=== PATIENT | female | born 1985 | race Caucasian/White ===

== ENCOUNTER 2016-11-02 19:17 | Emergency (ER) | payer OTHER ==
--- NOTE | 2016-11-02 19:52 | PDOC ---
Rapid Medical Evaluation Chief Complaint: Cold Symptoms Time Seen by Provider: 11/02/16 19:51 Medical Evaluation: I have performed a brief in-person evaluation of this patient. The patient presents with a chief complaint of: 31 yo F history asthma, fibromyalgia presents with fever, body aches. Pertinent physical exam findings: Ill appearing but nontoxic. I have ordered the following: UA/UCG, flu swab The patient will proceed to the ED for further evaluation.
[2016-11-02 19:55] VITALS: BP 125/101; PULSE 117; TEMP 100.2; BMI 31.3
[2016-11-02 20:26] LABS: URINE APPEARANCE SLCLOUDY; URINE BILIRUBIN NEGATIVE (NEGATIVE); URINE BLOOD NEGATIVE (NEGATIVE); URINE COLOR LTYELLOW; URINE GLUCOSE (UA) NEGATIVE (NEGATIVE); URINE KETONE NEGATIVE (NEGATIVE); URINE NITRITE POSITIVE (NEGATIVE); URINE PROTEIN NEGATIVE (NEGATIVE); URINE UROBILINOGEN NEGATIVE E.U./dl (0.2-1.0)
[2016-11-02 20:43] LABS: URINE LEUK ESTERASE TRACE (NEGATIVE)
[2016-11-02 20:53] LABS: URINE BACTERIA FEW /hpf (NONE SEEN); URINE MUCUS RARE; URINE RBC 8 /hpf (0-3); URINE WBC 23 /hpf (3-5)
[2016-11-02] MEDS ORDERED: KETOROLAC TROMETHAMINE 60 MG/2 ML VIAL IM ONE (21:29)
--- NOTE | 2016-11-02 21:35 | PDOC ---
History of Present Illness - General Chief Complaint: Cold Symptoms Stated Complaint: PAIN Time Seen by Provider: 11/02/16 19:51 History Source: Patient Exam Limitations: No Limitations - History of Present Illness Initial Comments: 11/02/16 21:30 Patient is here with acute onset of worsened body aches ( patient suffers from severe fibromyalgia ) but states this pain is different with earache, sore throat, fevers and chills that started yesterday. States sister was sick with URI last week but this is much worse than her illness. Patient receives pain management for her fibromyalgia which is been moderately controlled. Patient states pain is probably much worse due to her fibromyalgia and worries that she may have influenza Timing/Duration: reports: changing over time, getting worse Severity: reports: mild, moderate Past History - Travel Traveled outside of the country in the last 30 days: No Close contact w/someone who was outside of country & ill: No - Past Medical History Allergies/Adverse Reactions: Allergies Allergy/AdvReac Type Severity Reaction Status Date / Time No Known Allergies Allergy Verified 11/02/16 19:52 Home Medications: Ambulatory Orders Budesonide/Formoterol Fumarate [Symbicort 160-4.5 Mcg Inhaler] 1 inh IH BID PRN 03/22/12 Oxycodone HCl/Acetaminophen [Percocet 10-325 mg Tablet] 1 - 2 tab PO Q6H PRN 06/09 Oseltamivir Phosphate [Tamiflu -] 75 mg PO BID #10 capsule 11/02/16 Anemia: No Asthma: Yes Cancer: No Cardiac Disorders: No CVA: No COPD: No CHF: No Dementia: No Diabetes: No GI Disorders: No Disorders: (ectopic ) HTN: No Hypercholesterolemia: No Liver Disease: No Seizures: No Thyroid Disease: No - Surgical History Abdominal Surgery: No Appendectomy: No Cardiac Surgery: No Cholecystectomy: No Lung Surgery: No Neurologic Surgery: No Orthopedic Surgery: No - Reproductive History (#): 2 Para: 0 - Immunization History Immunization Up to Date: Yes - Psycho/Social/Smoking Cessation Hx Anxiety: No Suicidal Ideation: No Smoking Status: Yes Smoking History: Current some day smoker Have you smoked in the past 12 months: Yes Number of Cigarettes Smoked Daily: 3 Information on smoking cessation initiated: Yes 'Breaking Loose' booklet given: 11/02/16 Hx Alcohol Use: Yes (RARE) Drug/Substance Use Hx: No Substance Use Type: Alcohol, Marijuana Hx Substance Use Treatment: No Review of Systems - Review of Systems Able to Perform ROS?: Yes Is the patient limited German proficient: Yes Constitutional: Yes: Symptoms Reported, See HPI, Chills, Fever, Loss of Appetite , Malaise HEENTM: Yes: Symptoms Reported, See HPI, Nose Congestion, Throat Pain, Difficulty Swallowing Respiratory: Yes: Symptoms reported, See HPI, Cough. No: Wheezing ABD/GI: Yes: See HPI. No: Symptoms Reported Musculoskeletal: Yes: Symptoms Reported, See HPI, Joint Pain, Muscle Pain Integumentary: No: Symptoms Reported Neurological: Yes: Symptoms reported, See HPI, Headache All Other Systems: Reviewed and Negative *Physical Exam - Vital Signs Last Vital Signs Temp Pulse Resp BP Pulse Ox 100.2 F H 117 H 18 125/101 99 11/02/16 19:53 11/02/16 19:53 11/02/16 19:53 11/02/16 19:53 11/02/16 19:53 - Physical Exam General Appearance: Yes: Nourished, Appropriately Dressed, Apparent Distress, Moderate Distress HEENT: positive: PARTHA, TMs Normal (congested but landmarks easily visualized), Pharyngeal Erythema, Nasal Congestion, Rhinorrhea Respiratory/Chest: positive: Lungs Clear (worse) Gastrointestinal/Abdominal: positive: Soft. negative: Normal Bowel Sounds Extremity: positive: Normal Capillary Refill, Normal Inspection, Normal Range of Motion Integumentary: positive: Dry, Warm, Pale Neurologic: positive: casing trimmer II-XII NML intact, Fully Oriented, Alert, Normal Mood/ Affect, Normal Response, Motor Strength / ED Treatment Course - ADDITIONAL ORDERS Additional order review: Laboratory Results 11/02/16 19:50 Urine Color Ltyellow Urine Appearance Slcloudy Urine pH 8.0 D Ur Specific [place] 1.017 Urine Protein Negative Urine Glucose (UA) Negative Urine Ketones Negative Urine Blood Negative Urine Nitrite Positive Urine Bilirubin Negative Urine Urobilinogen Negative Ur Leukocyte Esterase Trace H Urine RBC 8 Urine WBC 23 Ur Epithelial Cells Rare Urine Bacteria Few Urine Mucus Rare Urine HCG, Qual Negative Progress Note - Progress Note Progress Note: Upper respiratory illness, probable influenza. Will treat with Tamiflu *DC/Admit/Observation/Transfer Diagnosis at time of Disposition: Influenzal acute upper respiratory infection - Discharge Dispostion Disposition: HOME Condition at time of disposition: Stable Admit: No - Patient Instructions Printed Discharge Instructions: DI for Viral Upper Respiratory Infection -- Adult Additional Instructions: Rest, drink lots of fluids: Teas, water, soups, Pedialyte Saltwater gargles Steamy showers/seem to face break up mucus Old-fashioned treatments help! Avoid contact with others until fevers and cough resolved as this is very contagious Lots of handwashing and good hygiene Continue [id number] medications for symptomatic relief Tylenol or Motrin for fever and pain Take all of Tamiflu as directed: 1 tab every 12 hours for 5 days Followup with private physician in one to 2 days as needed or if worsening Return to emergency department for worsened symptoms, fevers, dehydration Influenza takes between 5 and 7 days for resolution To not participate in any activity, work, or school until fevers and cough are gone for at least one day
[2016-11-02] MEDS ORDERED: KETOROLAC TROMETHAMINE 30 MG/1 ML VIAL ONE (21:37)
== END 2016-11-02 21:47 | disposition home or self-care (01) ==
LOC: JERFT 19:17
PROC: 3E0233Z Introduction of Anti-inflammatory into Muscle, Percutaneous Approach (ICD-10-PCS; principal; 2016-11-02)
DX: M79.7 Fibromyalgia (principal); J45.909 Unspecified asthma, uncomplicated; F17.210 Nicotine dependence, cigarettes, uncomplicated
CPT/HCPCS: 81003; 81015; 84703; 87804; 99281-25

== ENCOUNTER 2017-01-22 15:05 | Emergency (ER) | payer OTHER ==
[2017-01-22 15:13] VITALS: BP 126/96; PULSE 86; TEMP 98.1; BMI 32.8
--- NOTE | 2017-01-22 15:45 | PDOC ---
History of Present Illness - General Chief Complaint: Pain Stated Complaint: PAIN Time Seen by Provider: 01/22/17 15:44 History Source: Patient - History of Present Illness Occurred: reports: other Severity: reports: severe Upper Extremity Pain Location: left: shoulder Past History - Past Medical History Allergies/Adverse Reactions: Allergies Allergy/AdvReac Type Severity Reaction Status Date / Time No Known Allergies Allergy Verified 01/22/17 15:10 Home Medications: Ambulatory Orders NK [No Known Home Medication] 01/22/17 Anemia: No Asthma: Yes Cancer: No Cardiac Disorders: No CVA: No COPD: No CHF: No Dementia: No Diabetes: No GI Disorders: No Disorders: (ectopic ) HTN: No Hypercholesterolemia: No Liver Disease: No Seizures: No Thyroid Disease: No Other medical history: fibromyalgia - Surgical History Abdominal Surgery: Yes (ectopic x2) Appendectomy: No Cardiac Surgery: No Cholecystectomy: No Lung Surgery: No Neurologic Surgery: No Orthopedic Surgery: No - Reproductive History (#): 2 Para: 0 - Immunization History Immunization Up to Date: Yes - Psycho/Social/Smoking Cessation Hx Anxiety: No Suicidal Ideation: No Smoking Status: Yes Smoking History: Current every day smoker Have you smoked in the past 12 months: Yes Number of Cigarettes Smoked Daily: 2 Information on smoking cessation initiated: Yes 'Breaking Loose' booklet given: 01/22/17 Hx Alcohol Use: Yes Drug/Substance Use Hx: Yes Substance Use Type: None Hx Substance Use Treatment: No Review of Systems - Review of Systems Constitutional: No: Chills, Fever Musculoskeletal: Yes: Joint Pain. No: Joint Swelling Neurological: No: Numbness, Tingling, Weakness *Physical Exam - Vital Signs Last Vital Signs Temp Pulse Resp BP Pulse Ox 98.1 F 86 18 126/96 100 01/22/17 15:11 01/22/17 15:11 01/22/17 15:11 01/22/17 15:11 01/22/17 15:11 - Physical Exam General Appearance: Yes: Appropriately Dressed, Mild Distress HEENT: positive: Normal Voice Neck: positive: Supple Respiratory/Chest: negative: Respiratory Distress Extremity: positive: Normal Inspection, Tender (to superior aspect of L shoulder blade, FROMI to shoulder joint w/ intact strength, no ttp to cspine) Integumentary: positive: Dry, Warm Neurologic: positive: Fully Oriented, Alert, Normal Mood/Affect Medical Decision Making - Medical Decision Making 01/22/17 15:45 31 yo F, h/o cervical disc disease/DJD, fibromyalgia on chronic pain meds, here w/ severe L shoulder pain r/t elbow x 4 days, similar to pain she has had in the past. States she was told by her pain specialist that pain is due to her fibromyalgia. Denies UE weakness or sensory changes. States she went to see her doctor today for "injection" but that clinic was closed so decided to come into ED. States toradol significantly relieved pain in the past See exam Acute on chronic R shoulder pain H/o multiple pain syndrome, f/u with pain specialist No red flags at this time, i.e radiculopathy, etc -pain control and reassess 01/22/17 15:50 01/22/17 16:18 Pain better w/ meds. Dc to f/u with pain specialist *DC/Admit/Observation/Transfer Diagnosis at time of Disposition: Shoulder pain, left Qualifiers: Chronicity: unspecified Qualified Code(s): M25.512 - Pain in left shoulder - Discharge Dispostion Disposition: HOME Condition at time of disposition: Improved - Referrals Referrals: Isaias Loredo [Primary Care Provider] - - Patient Instructions Additional Instructions: Continue home medicatiosn and follow up with you pain specialist
[2017-01-22] MEDS ORDERED: KETOROLAC TROMETHAMINE 60 MG/2 ML VIAL IM ONE (15:49)
[2017-01-22] MEDS ORDERED: KETOROLAC TROMETHAMINE 30 MG/1 ML VIAL ONE (16:00)
== END 2017-01-22 16:22 | disposition home or self-care (01) ==
LOC: JERFT 15:05
DX: M25.512 Pain in left shoulder (principal); M79.7 Fibromyalgia
CPT/HCPCS: 99281-25

== ENCOUNTER 2017-03-18 14:00 | Emergency (ER) | payer OTHER ==
[2017-03-18 14:06] VITALS: BP 134/77; PULSE 107; TEMP 98.2; BMI 30.5
[2017-03-18] MEDS ORDERED: ALBUTEROL SO4 2.5/IPRATROPIUM 0.5 INH SOL 3 ML VIAL.NEB. NEB ONE ×2 (14:28→14:36)
[2017-03-18] MEDS ORDERED: IBUPROFEN 600 MG TABLET (FP) PO ONE ×2 (14:29→14:37)
--- NOTE | 2017-03-18 14:35 | PDOC ---
History of Present Illness - General Chief Complaint: Cold Symptoms Stated Complaint: PRODUCTIVE COUGH,SORE THROAT,RUNNY NOSE, CHILLS Time Seen by Provider: 03/18/17 14:28 History Source: Patient Exam Limitations: No Limitations - History of Present Illness Initial Comments: 03/18/17 14:29 Patient is a 32-year-old female history of asthma and fibromyalgia presents emergency Department with green productive sputum cough, pain to left lateral back when coughing, generalized pains, sore throat. Intermittent subjective fever. Patient reports that yesterday she was at a show in the sun for 17 hours. Patient is currently afebrile. Has not taken any medication today. Allergies: No known allergies Medications: See medication list Family History: Non-contributory Social History: Denies smoking, alcohol use, or IVDU Vital signs on arrival are notable for pulse of 107. Review of Systems GENERAL/CONSTITUTIONAL: Subjective fever, generalized aches. No weakness. No weight change. HEAD, EYES, EARS, NOSE AND THROAT: No change in vision. No ear pain or discharge. Sore throat CARDIOVASCULAR: No chest pain or shortness of breath. RESPIRATORY: Productive cough, wheezing, or hemoptysis. GASTROINTESTINAL: No nausea, vomiting, diarrhea or constipation. No rectal bleeding. GENITOURINARY: No dysuria, frequency, or change in urination. MUSCULOSKELETAL: No joint or muscle swelling or pain. No neck or back pain. SKIN AND BREASTS: No rash or easy bruising. NEUROLOGIC: No headache, vertigo, loss of consciousness, or loss of sensation. PSYCHIATRIC: No depression or anxiety. ENDOCRINE: No increased thirst. No abnormal weight change. HEMATOLOGIC/LYMPHATIC: No anemia, easy bleeding, or history of blood clots. ALLERGIC/IMMUNOLOGIC: No hives or skin allergy. No latex allergy. Physical Exam: GENERAL: The patient is awake, alert, and fully oriented, in no acute distress. EYES: Pupils equal, round and reactive to light, extraocular movements intact, sclera anicteric, conjunctiva clear. ENT: Ears normal, nares patent, oropharynx clear without exudates. Moist mucous membranes. No uvula deviation NECK: Normal range of motion, supple without lymphadenopathy, JVD, or masses. LUNGS: Breath sounds equal, clear to auscultation bilaterally. No wheezes, and no crackles. HEART: Regular rate and rhythm, normal S1 and S2 without murmur, rub or gallop. ABDOMEN: Soft, nontender, normoactive bowel sounds. No guarding, no rebound. No masses. No bruising or abrasions MUSCULOSKELETAL: Normal range of motion, no edema. No clubbing or cyanosis. No cords, erythema, or tenderness. No CVA Tenderness with fist. NEUROLOGICAL: Cranial nerves II through XII grossly intact. Normal speech, normal gait. SKIN: Warm, Dry, normal turgor, no rashes or lesions noted. Past History - Past Medical History Allergies/Adverse Reactions: Allergies Allergy/AdvReac Type Severity Reaction Status Date / Time No Known Allergies Allergy Verified 03/18/17 14:03 Home Medications: Ambulatory Orders Albuterol 0.083% Nebulizer Berta [Ventolin 0.083%] 1 neb NEB Q4H 03/18/17 Albuterol Sulfate Inhaler - [Ventolin Hfa Inhaler -] 1 - 2 inh PO Q4H 03/18/17 Budesonide/Formeterol Fumarate [SYMBICORT 160/4.5mcg -] 1 inh PO DAILY 03/18/17 Cyclobenzaprine HCl [Flexeril -] 10 mg PO TID 03/18/17 Ibuprofen 600 mg PO ASDIR 03/18/17 Oxycodone HCl/Acetaminophen [Percocet 10-325 mg Tablet] 1 each PO ASDIR Anemia: No Asthma: Yes Cancer: No Cardiac Disorders: No CVA: No COPD: No CHF: No Dementia: No Diabetes: No GI Disorders: No Disorders: Yes (ectopic ) HTN: No Hypercholesterolemia: No Liver Disease: No Seizures: No Thyroid Disease: No Other medical history: fibromyalgia - Surgical History Abdominal Surgery: Yes (ectopic x2) Appendectomy: No Cardiac Surgery: No Cholecystectomy: No Lung Surgery: No Neurologic Surgery: No Orthopedic Surgery: No - Reproductive History (#): 2 Para: 0 - Immunization History Immunization Up to Date: Yes - Psycho/Social/Smoking Cessation Hx Anxiety: No Suicidal Ideation: No Smoking Status: Yes Smoking History: Current some day smoker Have you smoked in the past 12 months: Yes Number of Cigarettes Smoked Daily: 1 Information on smoking cessation initiated: No 'Breaking Loose' booklet given: 01/22/17 Hx Alcohol Use: Yes Drug/Substance Use Hx: Yes Substance Use Type: None Hx Substance Use Treatment: No *Physical Exam - Vital Signs Last Vital Signs Temp Pulse Resp BP Pulse Ox 98.2 F 107 H 20 134/77 100 03/18/17 14:03 03/18/17 14:03 03/18/17 14:03 03/18/17 14:03 03/18/17 14:03 Medical Decision Making - Medical Decision Making 03/18/17 14:37 With symptoms of common cold. We'll send rapid strep, Motrin. 03/18/17 16:54 Laboratory Results - last 24 hr 03/18/17 14:38 Urine HCG, Qual Negative Urine is negative, Rapid strep is negative, chest x-ray with no acute pathology. Patient with common cold-like symptoms, supportive care, rest, increase fluids. I discussed the physical exam findings, ancillary test results and final diagnoses with the patient. I answered all of the patient's questions. The patient was satisfied with the care received and felt comfortable with the discharge plan and treatment plan. If symptoms persist, The patient will call within 3 days to arrange follow-up and will return to the Emergency Department with any new, persistent or worsening symptoms. *DC/Admit/Observation/Transfer Diagnosis at time of Disposition: Common cold - Discharge Dispostion Disposition: HOME Condition at time of disposition: Good Admit: No - Referrals Referrals: Isaias Loredo [Primary Care Provider] - - Patient Instructions Printed Discharge Instructions: DI for Common Cold Additional Instructions: Please increase your fluids Motrin for pain Your chest x-ray was negative, rapid strep is negative. If your symptoms persist more than 3 days please follow-up with PMD or if he develops fever, increased pain, or any other concerns return to ER - Post Discharge Activity Work/School Note: Back to Work
== END 2017-03-18 17:05 | disposition home or self-care (01) ==
LOC: JERFT 14:00
PROC: 3E0F7GC Introduction of Other Therapeutic Substance into Respiratory Tract, Via Natural or Artificial Opening (ICD-10-PCS; principal; 2017-03-18)
DX: J00 Acute nasopharyngitis [common cold] (principal)
CPT/HCPCS: 71020-TC; 84703; 87070; 87077; 87430; 94640; 99281-25

== ENCOUNTER 2017-06-13 19:32 | Emergency (ER) | payer OTHER ==
[2017-06-13 19:39] VITALS: BP 132/94; PULSE 100; TEMP 97.7; BMI 31.3
[2017-06-13] MEDS ORDERED: IBUPROFEN 400 MG TABLET (FP) PO ONE ×2 (20:39→20:41)
--- NOTE | 2017-06-13 20:42 | PDOC ---
History of Present Illness - General Chief Complaint: Injury Stated Complaint: ANKLE INJURY Time Seen by Provider: 06/13/17 20:09 History Source: Patient - History of Present Illness Occurred: reports: yesterday Severity: Yes: moderate Lower Extremity Pain Location: left: foot, ankle Method of Injury: Yes: fell Past History - Past Medical History Allergies/Adverse Reactions: Allergies Allergy/AdvReac Type Severity Reaction Status Date / Time No Known Allergies Allergy Verified 03/18/17 14:03 Home Medications: Ambulatory Orders Albuterol 0.083% Nebulizer Berta [Ventolin 0.083%] 1 neb NEB Q4H 03/18/17 Albuterol Sulfate Inhaler - [Ventolin Hfa Inhaler -] 1 - 2 inh PO Q4H 03/18/17 Budesonide/Formeterol Fumarate [SYMBICORT 160/4.5mcg -] 1 inh PO DAILY 03/18/17 Cyclobenzaprine HCl [Flexeril -] 10 mg PO TID 03/18/17 Ibuprofen 600 mg PO ASDIR 03/18/17 Oxycodone HCl/Acetaminophen [Percocet 10-325 mg Tablet] 1 each PO ASDIR Anemia: No Asthma: Yes Cancer: No Cardiac Disorders: No CVA: No COPD: No CHF: No Dementia: No Diabetes: No GI Disorders: No Disorders: Yes (ectopic ) HTN: No Hypercholesterolemia: No Liver Disease: No Seizures: No Thyroid Disease: No - Surgical History Abdominal Surgery: Yes (ectopic x2) Appendectomy: No Cardiac Surgery: No Cholecystectomy: No Lung Surgery: No Neurologic Surgery: No Orthopedic Surgery: No - Reproductive History (#): 2 Para: 0 - Immunization History Immunization Up to Date: Yes - Suicide/Smoking/Psychosocial Hx Smoking Status: Yes Smoking History: Current some day smoker Have you smoked in the past 12 months: Yes Number of Cigarettes Smoked Daily: 2 Information on smoking cessation initiated: No 'Breaking Loose' booklet given: 01/22/17 Hx Alcohol Use: No Drug/Substance Use Hx: No Substance Use Type: None Hx Substance Use Treatment: No Review of Systems - Review of Systems Musculoskeletal: Yes: Joint Pain, Joint Swelling *Physical Exam - Vital Signs Last Vital Signs Temp Pulse Resp BP Pulse Ox 97.7 F 100 H 18 132/94 98 06/13/17 19:35 06/13/17 19:35 06/13/17 19:35 06/13/17 19:35 06/13/17 19:35 - Physical Exam General Appearance: Yes: Appropriately Dressed. No: Apparent Distress HEENT: positive: Normal Voice Neck: positive: Supple Respiratory/Chest: negative: Respiratory Distress Extremity: positive: Tender (moderate swelling to lateral malleolus of L ankle) , Swelling ED Treatment Course - RADIOLOGY Radiology Studies Ordered: Category Date Time Status ANKLE & FOOT-LEFT* [RAD] Stat Radiology 06/13/17 20:39 Ordered Medical Decision Making - Medical Decision Making 06/13/17 20:40 32-year-old female, history of fibromyalgia, here with left ankle pain and swelling status post fall down steps yesterday. Has been limping since injury. Has not taken anything for pain. Denies any other injury See exam R/o ankle fx -XR -pain control 06/13/17 20:41 06/13/17 21:24 XR neg for fx. JENNIFER applied. Dc w/ RICE *DC/Admit/Observation/Transfer Diagnosis at time of Disposition: Ankle sprain Qualifiers: Encounter type: initial encounter Involved ligament of ankle: unspecified ligament Laterality: left Qualified Code(s): S93.402A - Sprain of unspecified ligament of left ankle, initial encounter; S93.402A - Sprain of unspecified ligament of left ankle, initial encounter - Discharge Dispostion Disposition: HOME Condition at time of disposition: Good - Patient Instructions Printed Discharge Instructions: DI for Ankle Sprain Additional Instructions: Your x-ray was negative for fracture. Elevate extremity, apply ice as needed and take 800 mg as needed for pain every 6 hours until symptoms resolve
== END 2017-06-13 21:33 | disposition home or self-care (01) ==
LOC: JERFT 19:32 → JER 19:32
DX: S93.402A Sprain of unspecified ligament of left ankle, initial encounter (principal); W10.8XXA Fall (on) (from) other stairs and steps, initial encounter; Y93.89 Activity, other specified; Y92.89 Other specified places as the place of occurrence of the external cause; Y99.8 Other external cause status; J45.909 Unspecified asthma, uncomplicated; F17.210 Nicotine dependence, cigarettes, uncomplicated
CPT/HCPCS: 73610-TC-LT; 73630-TC-LT; 99281-25

== ENCOUNTER 2017-07-28 22:19 | Emergency (ER) | payer OTHER ==
[2017-07-28 22:27] VITALS: BP 121/86; PULSE 92; TEMP 98.2; BMI 29.7
[2017-07-28] MEDS ORDERED: ALBUTEROL SO4 2.5/IPRATROPIUM 0.5 INH SOL 3 ML VIAL.NEB. NEB ONE (22:35)
--- NOTE | 2017-07-28 23:48 | PDOC ---
History of Present Illness - General Chief Complaint: Respiratory Stated Complaint: ASTHMA Time Seen by Provider: 07/28/17 23:17 - History of Present Illness Initial Comments: 07/29/17 00:51 32-year-old female with a history of asthma (no admissions, no ICU, no intubations, not on daily meds) presents with 5 days of runny nose, non productive cough and shortness of breath. The patient reports this feels like her usual asthma. She reports she's been using her nebulizer at home every few hours with minimal improvement. Denies any chest pain, fevers, chills, nausea, vomiting, diarrhea, abdominal pain, weakness, dizziness, numbness. Patient has not seen her primary care doctor. (Dr. Loredo). Last time she was on steroids was one year ago. Past History - Past Medical History Allergies/Adverse Reactions: Allergies Allergy/AdvReac Type Severity Reaction Status Date / Time No Known Allergies Allergy Verified 07/28/17 22:27 Home Medications: Ambulatory Orders Albuterol 0.083% Nebulizer Berta [Ventolin 0.083%] 1 neb NEB Q4H 03/18/17 Albuterol Sulfate Inhaler - [Ventolin Hfa Inhaler -] 1 - 2 inh PO Q4H 03/18/17 Budesonide/Formeterol Fumarate [SYMBICORT 160/4.5mcg -] 1 inh PO DAILY 03/18/17 Cyclobenzaprine HCl [Flexeril -] 10 mg PO TID 03/18/17 Ibuprofen 600 mg PO ASDIR 03/18/17 Oxycodone HCl/Acetaminophen [Percocet 10-325 mg Tablet] 1 each PO ASDIR Prednisone [Prednisone 50 MG TABLETS] 50 mg PO DAILY #4 tablet 07/29/17 Anemia: No Asthma: Yes Cancer: No Cardiac Disorders: No CVA: No COPD: No CHF: No DVT: No Dementia: No Diabetes: No GI Disorders: No Disorders: Yes (ectopic ) HTN: No Hypercholesterolemia: No Liver Disease: No Seizures: No Thyroid Disease: No Other medical history: fibromyalgia - Surgical History Abdominal Surgery: Yes (ectopic x2) Appendectomy: No Cardiac Surgery: No Cholecystectomy: No Lung Surgery: No Neurologic Surgery: No Orthopedic Surgery: No - Reproductive History (#): 2 Para: 0 - Immunization History Immunization Up to Date: Yes - Suicide/Smoking/Psychosocial Hx Smoking Status: Yes Smoking History: Current some day smoker Have you smoked in the past 12 months: Yes Number of Cigarettes Smoked Daily: 2 Information on smoking cessation initiated: No 'Breaking Loose' booklet given: 01/22/17 Hx Alcohol Use: No Drug/Substance Use Hx: No Substance Use Type: None Hx Substance Use Treatment: No Review of Systems - Review of Systems Comments:: 07/29/17 00:53 GENERAL/CONSTITUTIONAL: No fever or chills. No weakness. HEAD, EYES, EARS, NOSE AND THROAT: No change in vision. No ear pain or discharge. No sore throat. GASTROINTESTINAL: No nausea, vomiting, diarrhea or constipation. GENITOURINARY: No dysuria, frequency, or change in urination. CARDIOVASCULAR: No chest pain + shortness of breath. RESPIRATORY:+cough, wheezing, no hemoptysis. MUSCULOSKELETAL: No joint or muscle swelling or pain. No neck or back pain. SKIN: No rash NEUROLOGIC: No headache, vertigo, loss of consciousness, or change in strength/ sensation. ENDOCRINE: No increased thirst. No abnormal weight change. HEMATOLOGIC/LYMPHATIC: No anemia, easy bleeding, or history of blood clots. ALLERGIC/IMMUNOLOGIC: No hives or skin allergy. *Physical Exam - Vital Signs Last Vital Signs Temp Pulse Resp BP Pulse Ox 98.2 F 92 H 18 121/86 100 07/28/17 22:24 07/28/17 22:24 07/28/17 22:24 07/28/17 22:24 07/28/17 22:24 - Physical Exam Comments: 07/29/17 00:55 GENERAL: Awake, alert, and fully oriented, in no acute distress HEAD: No signs of trauma EYES: PERRLA, EOMI, sclera anicteric, conjunctiva clear ENT: Auricles normal inspection, hearing grossly normal, nares patent, oropharynx clear without exudates. Moist mucosa NECK: Normal ROM, supple, no lymphadenopathy, JVD, or masses LUNGS: mild wheezing b/l, good air movement. No crackles. No increased WOB. HEART: Regular rate and rhythm, normal S1 and S2, no murmurs, rubs or gallops ABDOMEN: Soft, nontender, normoactive bowel sounds. No guarding, no rebound. No masses EXTREMITIES: Normal range of motion, no edema. No clubbing or cyanosis. No cords, erythema, or tenderness NEUROLOGICAL: Normal speech, cranial nerves intact, negative pronator drift, 5/ 5 strength in all 4 extremities, normal sensation to light touch in all 4 extremities, normal cerebellar exam, normal gait, normal reflexes and tone SKIN: Warm, Dry, normal turgor, no rashes or lesions noted. Medical Decision Making - Medical Decision Making 07/29/17 00:55 32-year-old female with a history of asthma presents with an asthma exacerbation , likely in the setting of a URI. Vitals are unremarkable. Exam with mild wheezing but good air movement and no increased work of breathing. Likely a mild asthma exacerbation. No crackles auscultated on exam and patient does not have any fevers or chills and thus low likelihood for pneumonia. O2 sat is 100% on RA. Will hold off on chest x-ray given low probability of infiltrate. Will treat with nebs and give steroids and likely discharge. 07/29/17 01:18 Patient feels much better after nebs. She received her first dose of steroids and requests discharge home. I discussed the physical exam findings, ancillary test results and final diagnoses with the patient. I answered all of the patient's questions. The patient was satisfied with the care received and felt comfortable with the discharge plan and treatment plan. The patient will call their primary care physician within 24 hours to arrange follow-up and will return to the Emergency Department with any new, persistent or worsening symptoms. *DC/Admit/Observation/Transfer Diagnosis at time of Disposition: Asthma - Discharge Dispostion Disposition: HOME Condition at time of disposition: Stable Admit: No - Prescriptions Prescriptions: Prednisone [Prednisone 50 MG TABLETS] 50 mg PO DAILY #4 tablet - Referrals Referrals: Isaias Loredo [Primary Care Provider] - - Patient Instructions Printed Discharge Instructions: Asthma -- Adult Additional Instructions: Take your steroids as prescribed - start your first dose in 24hrs. Use your nebulizer treatments every 2-4 hours as needed for shortness of breath. Follow- up with Dr. Loredo within 2-3 days. Return to the emergency department if you have any new, worsening or concerning symptoms. - Post Discharge Activity - Attestations Physician Attestion: 07/29/17 01:20 I, Dr. Fiorella Rao MD, attest that this document has been prepared under my direction and personally reviewed by me in its entirety. I further attest, that it accurately reflects all work, treatment, procedures and medical decision -making performed by me.
[2017-07-29] MEDS ORDERED: predniSONE 20 MG TABLET (UD) PO ONE (00:49)
[2017-07-29] MEDS ORDERED: ALBUTEROL SO4 2.5/IPRATROPIUM 0.5 INH SOL 3 ML VIAL.NEB. NEB SCH (01:00)
[2017-07-29] MEDS ORDERED: predniSONE 20 MG TABLET (UD) ONE (01:01)
== END 2017-07-29 01:20 | disposition home or self-care (01) ==
LOC: JER 22:19
PROC: 3E0F7GC Introduction of Other Therapeutic Substance into Respiratory Tract, Via Natural or Artificial Opening (ICD-10-PCS; principal; 2017-07-28)
DX: J45.909 Unspecified asthma, uncomplicated (principal); Z72.0 Tobacco use
CPT/HCPCS: 84703; 94640; 99282-25

== ENCOUNTER 2019-07-30 13:14 | Emergency (ER) | payer OTHER ==
[2019-07-30 13:31] VITALS: TEMP 98.3; BMI 28.5
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
[2019-07-30] MEDS ORDERED: IBUPROFEN 600 MG TABLET (FP) PO ONE ×2 (13:51→13:58)
[2019-07-30] MEDS ORDERED: ACETAMINOPHEN 325 MG TABLET (FP) PO ONE (13:51)
[2019-07-30] MEDS ORDERED: ACETAMINOPHEN 325 MG TABLET (FP) ONE (13:57)
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
[2019-07-30] MEDS ORDERED: BUPRENORPHINE HCL/NALOXONE 12 MG-3 MG SL FILM PACKET SL ONE (14:39)
[2019-07-30] MEDS ORDERED: LIDOCAINE 5% TOPICAL PATCH TP ONE (15:47)
[2019-07-30] MEDS ORDERED: LIDOCAINE 5% TOPICAL PATCH ONE (15:51)
[2019-07-30 16:33] VITALS: BP 116/73; PULSE 72
== END 2019-07-30 16:32 | disposition home or self-care (01) ==
LOC: JER 13:14
DX: V43.52XA Car driver injured in collision with other type car in traffic accident, initial encounter (principal); Y93.89 Activity, other specified; Y92.410 Unspecified street and highway as the place of occurrence of the external cause; J45.909 Unspecified asthma, uncomplicated; M79.7 Fibromyalgia
CPT/HCPCS: 72125-TC; 99282-25

== ENCOUNTER 2020-10-03 16:22 | Emergency (ER) | payer OTHER ==
[2020-10-03 16:46] VITALS: BP 120/54; PULSE 96; TEMP 98.2; BMI 26.3
[2020-10-03] MEDS ORDERED: predniSONE 20 MG TABLET (UD) PO ONE (17:23)
[2020-10-03] MEDS ORDERED: diphenhydrAMINE HCL 25 MG CAPSULE (FP) PO ONE ×2 (17:23→17:33)
[2020-10-03] MEDS ORDERED: predniSONE 20 MG TABLET (UD) ONE (17:33)
== END 2020-10-03 17:45 | disposition home or self-care (01) ==
LOC: JER 16:22
DX: L29.9 Pruritus, unspecified (principal); T78.3XXA Angioneurotic edema, initial encounter
CPT/HCPCS: 99283-25

== ENCOUNTER 2021-04-18 15:49 | Emergency (ER) | payer OTHER ==
[2021-04-18 16:10] VITALS: BP 94/57; PULSE 81; TEMP 98.1; BMI 24.1
[2021-04-18] MEDS ORDERED: ONDANSETRON 4 MG/2 ML VIAL IVPUSH ONE (17:21)
[2021-04-18] MEDS ORDERED: ACETAMINOPHEN 1000 MG/100 ML VIAL (NON FORMULARY) IVPB ONE (17:22)
[2021-04-18] MEDS ORDERED: SODIUM CHLORIDE 0.9% 500 ML INFUS.BAG IV ONE (17:22)
[2021-04-18] MEDS ORDERED: ONDANSETRON 4 MG/2 ML VIAL ONE (17:30)
[2021-04-18] MEDS ORDERED: ACETAMINOPHEN INJECTION 100 ML IVPB ONE (17:30)
[2021-04-18] MEDS ORDERED: DEXTROSE 5%-LACTATED RINGERS 1,000 ML IV SCH (17:45)
[2021-04-18 18:34] LABS: BASO % 0.3 % (0-2.0); EOS % 1.6 % (0-4.5); HEMATOCRIT 34.6 % (32.4-45.2); MCH 31.8 pg (25.7-33.7); MCHC 34.7 g/dl (32.0-36.0); MEAN CELL VOLUME 91.5 fl (80-96); MEAN PLT VOLUME 6.8 fl (7.5-11.1); MONO % 4.5 % (3.8-10.2); NEUT % 75.6 % (42.8-82.8); PLATELET COUNT 358 10^3/uL (134-434); RBC 3.78 M/mm3 (3.60-5.2); RDW 13.3 % (11.6-15.6); WHITE BLOOD COUNT 10.9 K/mm3 (4.0-10.0)
[2021-04-18 18:37] LABS: EPI CELLS 11 /uL (0-25.1); HYALINE CASTS 1 /uL (0-3.1); URINE APPEARANCE CLEAR; URINE BACTERIA 473 /uL (0-1359); URINE BILIRUBIN NEGATIVE (NEGATIVE); URINE COLOR YELLOW; URINE GLUCOSE (UA) NEGATIVE (NEGATIVE); URINE KETONE NEGATIVE (NEGATIVE); URINE LEUK ESTERASE TRACE (NEGATIVE); URINE NITRITE NEGATIVE (NEGATIVE); URINE PROTEIN NEGATIVE (NEGATIVE); URINE UROBILINOGEN 0.2 mg/dL (0.2-1.0); URINE WBC 70 /uL (0-25.8)
[2021-04-18 18:43] LABS: ALBUMIN 3.2 g/dl (3.4-5.0); BLOOD UREA NITROGEN 11.8 mg/dL (7-18); CALCIUM 9.2 mg/dL (8.5-10.1)
[2021-04-18 18:46] LABS: CREATININE 0.6 mg/dL (0.55-1.3)
[2021-04-18 18:48] LABS: BILIRUBIN,TOTAL 0.1 mg/dL (0.2-1); TOT PROT 6.5 g/dl (6.4-8.2)
[2021-04-18 19:37] LABS: URINE RBC 46.3 /uL (0-23.9)
== END 2021-04-18 20:32 | disposition home or self-care (01) ==
LOC: JER 15:49
PROC: 3E033GC Introduction of Other Therapeutic Substance into Peripheral Vein, Percutaneous Approach (ICD-10-PCS; principal; 2021-04-18)
DX: O21.9 Vomiting of pregnancy, unspecified (principal); Z3A.09 9 weeks gestation of pregnancy
CPT/HCPCS: 36415; 76801-TC; 80053; 81003; 84702; 85025; 87086; 87186; 99284-25; J0131